=== PATIENT | female | born 1950 | race Caucasian/White ===

== ENCOUNTER 2018-03-06 06:33 | Inpatient (IN) ==
--- NOTE | 2018-02-22 19:08 | ANES ---
Anesthesia Pre Procedure Eval HOME MEDICATIONS diclofenac sodium 75 mg tablet,delayed release 75 mg PO BID #60 tab 12/12/17 [Last Taken Unknown] acetaminophen 325 mg tablet 325 mg PO Q4H PRN 01/25/18 [Last Taken Unknown] Allergies/Adverse Reactions: Allergies Allergy/AdvReac Type Severity Reaction Status Date / Time No Known Allergies Allergy Verified 02/22/18 09:15 - Planned Procedure Planned Procedure: Left Arthroplasty Total Hip Medication List Reviewed:: Yes Allergies Verified: Yes Medical History (Last Reviewed 02/22/18 @ 19:07 by Jose Guadalupe Cornejo CRNA) Left hip pain Onset Date: Unknown Tobacco abuse Onset Date: Unknown Arthritis Onset Date: ~03/11/16 Gallbladder polyp Onset Date: ~03/10/15 Joint pain Onset Date: ~08/09/17 Adhesive capsulitis of shoulder Onset Date: Unknown Adrenal adenoma Onset Date: ~03/26/16 right Back pain Onset Date: ~03/11/16 Weight loss Onset Date: ~03/10/15 Surgical History (Last Reviewed 02/22/18 @ 19:07 by Jose Guadalupe Cornejo CRNA) History of colonoscopy Onset Date: Unknown History of shoulder surgery Onset Date: ~01/01/99 Dr. Arana left frozen shoulder /arthroscopy Family History (Last Reviewed 02/22/18 @ 19:07 by Jose Guadalupe Cornejo CRNA) Brother Cancer of groin Father , 96 Arthritis History of hip replacement Cancer lung Mother , 92 Hypertension Parkinsons Sister , 68 Anorexia - Family Anesthesia History Family History:: no untoward family reactions to anesthesia - Airway/Neck/Teeth Within Normal Limits:: Yes Teeth Condition: intact Denture Type: None Neck Exam: full range of motion Mallampatti Score: 2 Thyromental (T-M) distance: > 6 cm Mandibulo Hyoid distance: > 3 cm - Respiratory Smoking Status: Current every day smoker Discussed smoking cessation including day of surgery: Yes Sleep Apnea currently treated: No - Cardiovascular Tolerate Activity: Fair - Anesthesia Assessment and Plan ASA Class: PS, II Anesthesia Type Plan: Spinal Planned difficult intubation/equipment available: No
[~2018-03-06 06:33] MED LIST: MORPHINE SULFATE 15 MG TABLET.SA PO PRN; ROPIVACAINE HCL/PF 100 MG, EPINEPHrine 0.2 MG, KETOROLAC TROMETHAMINE 30 MG in NORMAL S... IJ PRN; TRANEXAMIC ACID 1,000 MG in NORMAL SALINE 100 ML IV PRN; ceFAZolin SODIUM 1 GM VIAL IV PRN
[2018-03-06] MEDS: RINGER'S SOLUTION,LACTATED 1,000 ML IV PRN ×3 (07:08→09:40)
[2018-03-06] MEDS ORDERED: ACETAMINOPHEN 500 MG TABLET PO PRN (09:33)
[2018-03-06] MEDS ORDERED: ONDANSETRON HCL/PF 2 MG/ML VIAL IV PRN (09:33)
[2018-03-06] MEDS ORDERED: diphenhydrAMINE HCL 50 MG/ML VIAL IV PRN (09:33)
[2018-03-06] MEDS ORDERED: DEXTROSE 5%-LACTATED RINGERS 1,000 ML IV PRN (09:33)
[2018-03-06] MEDS ORDERED: MORPHINE SULFATE 4 MG/ML SYRG IV PRN (09:33)
[2018-03-06] MEDS ORDERED: ZOLPIDEM TARTRATE 5 MG TABLET PO PRN (09:33)
[2018-03-06] MEDS ORDERED: MAG HYDROX/ALUMINUM HYD/SIMETH 30 ML UDC PO PRN (09:33)
[2018-03-06] MEDS ORDERED: MAGNESIUM HYDROXIDE 30 ML UDC PO PRN (09:33)
--- NOTE | 2018-03-06 09:37 | OR ---
Operative Report - Dictated Report Narrative: Date: 03/06/2018 Preoperative diagnosis: Left hip degenerative joint disease. Postoperative diagnosis: Left hip degenerative joint disease. Procedure: Left Total hip arthroplasty. Surgeon: Mohit Cotton M.D. Senior Engineering Associate: Sumit Sharp PA-C (provided an essential set of skilled, educated and assisted with transfer, positioning, prepping, draping, manipulation, traction, irrigation, suturing, and placement of dressings all of which cannot be performed by the available surgical crew) Anesthesia: Spinal and local periarticular joint injection. Complications: None Specimens: Bone for disposal. Estimated blood loss: 150 milliliters. Retained implants: Depuy [place] size 5 femoral stem standard offset. Size 50 millimeter outside diameter 3-hole [place] Gription acetabular cup. 50 millimeter outside by 32 millimeter inside diameter highly cross-linked acetabular liner. 52 millimeter diameter +9 millimeter ceramic femoral head. Cancellous 6.5mm screw 25 millimeter length Indications: Mrs. Sales is a 67-year-old female who has had long-standing left hip pain and arthrosis. This patient was followed in my clinic for period of time with significant complaints of left hip pain consistent with arthritic changes. She failed conservative measures including but not limited to activity modification, passage of time, medications, and other conservative measures. Patient wished to proceed with surgical treatment. The risks, benefits, and alternatives were discussed in clinic. The risks of , blood clots, bleeding, infection, nerve/tendon blood vessel/ injury, malposition of components, dislocation and/or instability of joint, intraoperative fracture, postoperative limited range of motion, persistent pain, failure of components, and need for additional procedures. Patient wished to proceed. Consent was obtained after answering all questions. Procedure: After marking the correct extremity on the floor, the patient was taken to the operating room. A timeout was performed. IV antibiotics consisting of Ancef were administered prior to the procedure. A spinal anesthetic was induced by anesthesia. A Savage catheter was inserted. The patient was then transitioned to a lateral position on a well-padded pegboard. An axillary roll was placed. The head was in neutral position. The non- operative down leg was well-padded with SCD and CHADWICK hose in place. The arms were supported and padded to protect from any undue pressure on the bony prominences and nerves. A well-padded anterior and posterior pelvic and chest posts were secured in order to maintain a stable position of the pelvis. This was placed so that the pelvis was perpendicular to the floor. The body was in line with the pelvis. Once it was felt that we had protected all the bony prominences and the patient was well secured with a safety belt as well, the leg was pre-scrubbed with alcohol, prepped and draped in a standard sterile fashion. A standard anterior lateral hip incision was marked out over the greater trochanter. Ioban drapes were then placed. The skin incision was then made. Sharp dissection with a scalpel utilizing cautery for hemostasis was carried out down to the gluteus and iliotibial band fascia. This was split in line with the skin incision. The greater trochanter bursa was excised. The anterior and posterior margins of the abductor tendon were identified. The anterior 1/2-1/3 of the tendon was tagged and reflected off the greater trochanter leaving a sleeve of tendon for repair at the completion of the case. This exposed the underlying hip joint capsule. A limb length stitch was placed in the skin and referencedd off a jamia on the greater trochanter for evaluation of intraoperative limb lengths. An inverted T-type capsulotomy was made extending this up to the brim of the acetabulum. Using Homans to assist with elevation of the soft tissues off the anterior, superior, and inferior aspects of the femoral neck, the hip was then placed in a figure 4 position and the femoral head was dislocated. With the leg in an externally rotated and adducted position, the cutting flag was utilized in order to jamia for a standard femoral neck cut approximately a fingerbreadth above the level of the lesser trochanter. This was done with reference to pre-operative films and overall alignment. This was done while protecting the surrounding soft tissues with Homans. The femoral head was then removed and sized for guidance on preparation of the acetabulum. It was noted that there was loss of articular cartilage on both the femoral head and weightbearing portions of the acetabulum. We then returned the leg to the table and turned our attention to the acetabulum. While protecting the surrounding soft tissues, the labrum and remaining tissue in the fovea were excised using a scalpel and cautery. A series of reamers up to size 50 millimeter were utilized to prepare the acetabulum. The final reamer had good purchase and exposed the bleeding subchondral bone. The acetabulum was then thoroughly irrigated ensuring that all bony and cartilaginous materials were removed, and the final acetabular shell was impacted into place. This was placed in approximately 45 degrees of abduction and 20 degrees of anteversion utilizing the outrigger and body axis for alignment. This had a good press fit. 1 6.5mm cancellous screw was placed in the superior posterior quadrant of the acetabulum. The shell was then thoroughly irrigated and the final polyethylene was impacted into place ensuring that it seated completely. This was then protected with a sponge while we returned our attention to the femur. With the leg in a figure 4 position, utilizing Homans for soft tissue protection, a box cutting osteotome, followed by Charnley awl, followed by serial reamers and broaches were utilized in order to prepare the femur. It was found that a size 5 broach gave good axial and rotational stability. The calcar reamer was utilized in order to clean up the cut edges. The proximal femur was visualized to ensure that there were no signs of fracture. A series of heads and necks were trialed. It was found that a standard offset neck and a + 9 femoral head gave good overall stability. There was minimal longitudinal instability. With the leg in the position of sleep, the femoral head was well covered. Hip range of motion was able to reach full extension and external rotation to greater than 75 degrees prior to impingement along the posterior acetabulum. The hip was able to be flexed to greater than 90 degrees with internal rotation greater than 60 degrees prior to anterior impingement. The limb lengths were near equal based on comparison to the contralateral side and the prior placed limb length stitch. At this point it was felt these were the appropriately sized femoral components as well as neck and femoral head. The trial implants were removed. The femur was thoroughly irrigated. The final implants were impacted into place, and the hip was reduced. After ensuring that there was no damage to the proximal femur, the standard periarticular joint injection of ropivacaine, Toradol, and epinephrine were injected into the joint capsule and surrounding soft tissues. Anesthesia then administered intravenous tranexamic acid. The capsule was repaired with a single interrupted #1 Vicryl. The abductor tendon was repaired to the greater trochanter utilizing #5 Ethibond through drill holes. This was oversewn with #1 Vicryl. The fascia was closed with interrupted #1 Vicryl. The wounds were thoroughly irrigated as we closed in layers. The deep and subcutaneous fat layers were closed with 0 and 3-0 Vicryl respectively. The subcutaneous tissue was closed with a running 3-0 Vicryl and the skin lane. All sponge, needle, blade, and instrument counts were correct prior to closing the wounds. Sterile dressings consisting of xeroform, 4 x 4's, and tape were applied. The patient was awoken and transferred to her hospital bed and then to the postanesthesia care unit in stable condition. Postoperative condition: The plan is to admit to the medical/surgical inpatient floor postoperatively. There will be a projected 1 to 3 day hospital stay. Postoperatively 24 hours of IV antibiotics, pain control, physical therapy, occupational therapy, and medical comanagement will be utilized. Patient will be weightbearing as tolerated with anterior hip precautions. Postoperative films will be obtained in the recovery room.
--- NOTE | 2018-03-06 09:50 | ANES ---
Post Anesthesia Discharge - Transfer of Care Transfer of Care handoff given to nurse: Yes - Discharge from PACU Discharge from PACU when meets criteria: Yes
[2018-03-06] MEDS: KETOROLAC TROMETHAMINE 15 MG/ML VIAL IV SCH ×3 (10:29→22:03)
[2018-03-06] MEDS: ceFAZolin SODIUM 1 GM in DEXTROSE 5 % IN WATER 50 ML IV SCH ×4 (10:32→16:32)
--- NOTE | 2018-03-06 11:40 | ANES ---
Post Anesthesia Assessment - Vital Signs Vitals: Last Vital Signs Temp 36.6 C 03/06/18 10:20 Pulse 60 03/06/18 11:05 Resp 14 03/06/18 11:05 BP 118/61 03/06/18 11:05 Pulse Ox 100 03/06/18 11:05 Airway Patency: Normal - Mental Status Level Of Consciousness: Awake - Pain Level Pain Score: 0 - N/V Assessment Nausea/Vomiting Presence: None Dehydration:: No
[2018-03-06] MEDS: oxyCODONE HCL/ACETAMINOPHEN 1 TAB TABLET PO PRN ×2 (12:48→16:29)
[2018-03-06] MEDS: SENNOSIDES/DOCUSATE SODIUM 1 TAB TABLET PO SCH (22:03)
[2018-03-06] MEDS: MORPHINE SULFATE 15 MG TABLET.SA PO SCH (22:03)
[2018-03-07] MEDS: ceFAZolin SODIUM 1 GM in DEXTROSE 5 % IN WATER 50 ML IV SCH ×2 (01:04)
[2018-03-07] MEDS: KETOROLAC TROMETHAMINE 15 MG/ML VIAL IV SCH ×4 (04:44→22:10)
[2018-03-07 05:34] LABS: Hemoglobin 11.1 gm/dL (12.5-16.0); Mean Cell Volume 96.5 fl (78-100); Mean Corpuscular Hemoglobin 32.5 pg (27-31); Mean Corpuscular Hgb Conc 33.6 g/dl (32-36); Mean Platelet Volume 9.3 fl (8-12.5); Platelet Count 233 K/mm3 (150-450); Red Blood Count 3.42 M/mm3 (4.2-5.4); Red Cell Distribution Width 12.9 % (11.5-14.0); White Blood Count 10.2 K/mm3 (4.0-10.5)
[2018-03-07 05:43] LABS: Anion Gap 12.3 mmol/L (6.8-13.8); BUN/Creatinine Ratio 12.3 (9.0-21.6); Calcium * 8.4 mg/dL (7.9-10.9); Carbon Dioxide 24.9 mmol/L (24-32.6); Estimated Creat Clear 63.4; Potassium 4.2 mmol/L (3.4-4.6)
[2018-03-07] MEDS: oxyCODONE HCL/ACETAMINOPHEN 1 TAB TABLET PO PRN ×3 (07:05→20:06)
[2018-03-07] MEDS: MORPHINE SULFATE 15 MG TABLET.SA PO SCH ×2 (09:02→21:50)
[2018-03-07] MEDS: ENOXAPARIN SODIUM 40 MG/0.4 ML SYRG SC SCH (09:04)
[2018-03-07] MEDS ORDERED: MORPHINE SULFATE 2 MG/ML DISP.SYRIN IV PRN (10:00)
--- NOTE | 2018-03-07 16:38 | PN ---
Subjective - Date and Time Seen Date: 03/07/18 Time: 07:45 Subjective Narrative: Subjective: Reports mild left hip pain. It was worse last night but is improved this morning. Was able to walk in the [place] with therapy. Pain is better- controlled. Voiding without any complications. Tolerating by mouth intake. Denies any nausea or vomiting. Denies calf pain. Physical exam: Alert and oriented to person, place and time Left lower extremity: Palpable dorsalis pedis pulse. Sensation grossly intact to light touch. Dressings clean and dry. Able to flex and extend ankle and toes. No excessive drainage. Calf and thigh are soft and nontender. Assessment: Postop day 1 status post left total hip arthroplasty. Plan: Due to the need for pain control, post-operative limited mobility, protection of the surgical site and joint, monitoring of the wound, and the management of chronic medical conditions, she requires continued inpatient care. Continue with physical and occupational therapy weightbearing as tolerated. Continue with anticoagulation. 24 hours postoperative prophylactic antibiotics. Pain control with goal to rely on oral medications. Continue bowel regimen. Will need 6 weeks with walker or assitive device to protect joint while ambulating during the recovery process. Discharge planning. She has not met her physical therapy goals and thus will need to stay an additional day prior to going home. Objective - Vitals Vitals: Last Vital Signs Temp 37 C 03/07/18 14:00 Pulse 76 03/07/18 14:00 Resp 18 03/07/18 14:00 BP 116/62 03/07/18 14:00 Pulse Ox 93 03/07/18 14:00 - Abnormal Lab Findings Abnormal Lab Findings: Abnormal Lab Results 03/07/18 03/07/18 Range/Units 05:24 05:24 RBC 3.42 L (4.2-5.4) M/mm3 Hgb 11.1 L (12.5-16.0) gm/dL Hct 33.0 L (37.0-47.0) % MCH 32.5 H (27-31) pg Random Glucose 112 H (70-110) mg/dL Cauti Physician Documentation - Urinary Catheter Management Urethral (Savage) Date of Insertion: 03/06/18 Time of Insertion: 08:10 Date of Removal: 03/07/18 Time of Removal: 04:45 Assessment/Plan - Problems/Diagnosis (1) Status post total replacement of left hip Problem: Acute (2) Acute blood loss anemia Problem: Acute
[2018-03-07] MEDS: SENNOSIDES/DOCUSATE SODIUM 1 TAB TABLET PO SCH (21:51)
[2018-03-08] MEDS: KETOROLAC TROMETHAMINE 15 MG/ML VIAL IV SCH (05:14)
[2018-03-08] MEDS: ENOXAPARIN SODIUM 40 MG/0.4 ML SYRG SC SCH (08:20)
[2018-03-08] MEDS: MORPHINE SULFATE 15 MG TABLET.SA PO SCH (08:21)
[2018-03-08] MEDS: oxyCODONE HCL/ACETAMINOPHEN 1 TAB TABLET PO PRN ×2 (08:27→13:27)
--- NOTE | 2018-03-08 13:40 | DS ---
(1) Status post total replacement of left hip Problem: Acute (2) Acute blood loss anemia Problem: Acute Description of Stay: Mrs. Sales was admitted to the floor after undergoing left total hip arthroplasty. Tolerated this well. Was admitted to the floor postoperatively for 24 hours of IV antibiotics, pain control, medical comanagement, and occupational and physical therapy. OT and PT were consulted to assist with activities of daily living and ambulation. Was made weightbearing as tolerated with range of motion as tolerated with anterior hip precautions. Pain was initially controlled with IV regimen. This was transitioned to oral once tolerating a by mouth intake. Was resumed on home diet and medications. Had a Savage catheter inserted and the operating room which was discontinued on postoperative day 1. Lovenox SCD and CHADWICK hose were utilized for DVT prophylaxis. Vital signs remained stable to the hospital course. Serial labs were obtained which showed a final hemoglobin of 11.1 grams. BMP was reviewed and was stable. Physical examination throughout the hospital course showed an extremity that had sensation that was intact to light touch, palpable pulses, a benign wound, motor intact to the toes, ankle, and knee. Once an oral pain re gimen was tolerated and physical therapy goals were met, it was felt that they were stable for discharge to home. Instructions: Continue with weightbearing as tolerated and range of motion as tolerated with anterior hip precautions. Keep incision clean and dry. If you note any drainage or for comfort you can cover with dry gauze and tape. Change every 2-3 days as needed. Continue with physical therapy. Resume home diet. Report any fever over 101.5 Fahrenheit, uncontrolled pain, increased drainage, foul odor of drainage, new or increased calf pain or shortness of breath, or any other sig nificant complaints. A 325mg dialy aspirin will be started after finishing anticoagulation if not allergic. Continue with CHADWICK hose on the operative extremity until instructed otherwise. No driving until instructed otherwise. Follow up in approximately 10-14 days. Procedures Performed: see notes below List Procedures: Left total hip arthroplasty Results and Findings: Lab Pending Results 03/07/18 05:24: WBC 10.2, RBC 3.42 L, Hgb 11.1 L, Hct 33.0 L, MCV 96.5, MCH 32.5 H, MCHC 33.6, RDW 12.9, Plt Count 233, MPV 9.3 03/07/18 05:24: Sodium 139, Plasma Sodium 139, Potassium 4.2, Chloride 106, Carbon Dioxide 24.9, Anion Gap 12.3, BUN 10, Creatinine 0.81, Est GFR (Non-Af Amer) 75, BUN/Creatinine Ratio 12.3, Random Glucose 112 H, Calcium 8.4 Discharge Location: Home Disposition: Home self-care Condition: Good Discharge Activity: Activity as tolerated, Weight bearing, Other - with wheeled walker following anterior hip precautions Discharge Diet: General/regular food Referrals: Nayeli Pimentel MD [Primary Care Provider] - Additional Patient Instructions (free text): Outpatient Physical Therapy at [facility] rehab on 03/09/18 at 2:00pm.. Follow up Orthopedic appointment with Dr Cotton's office on TuesdayMar.21 at 8:30am. Prescriptions (Any new or edited meds): Enoxaparin Sodium [Lovenox] 40 mg SC Q24H #7 disp.syrin Morphine Sulfate [Ms Contin] 15 mg PO Q12H #20 tablet.sa oxyCODONE HCL/ACETAMINOPHEN [Percocet 5 MG/325 MG] 2 tab PO Q4H PRN #60 tab PRN Reason: Moderate Pain (Pain Scale 4-6) Sennosides/Docusate Sodium [Senokot-S] 2 tab PO HS #30 tablet Complete Home Medications List: Complete Home Medication List: Enoxaparin Sodium [Lovenox] 40 mg SC Q24H #7 disp.syrin 03/08/18 Morphine Sulfate [Ms Contin] 15 mg PO Q12H #20 tablet.sa 03/08/18 Sennosides/Docusate Sodium [Senokot-S] 2 tab PO HS #30 tablet 03/08/18 oxyCODONE HCL/ACETAMINOPHEN [Percocet 5 MG/325 MG] 2 tab PO Q4H PRN #60 tab 03/08/18
[2018-03-08 16:15] VITALS: BP 110/56
== END 2018-03-08 15:30 | disposition home or self-care (01) | DRG 470 ==
LOC: MS 06:33
PROVIDERS: ADMIT Orthopaedic Surgery; ATTEND Orthopaedic Surgery
DX: M19.90 Unspecified osteoarthritis, unspecified site; D62 Acute posthemorrhagic anemia; Z82.61 Family history of arthritis; M16.12 Unilateral primary osteoarthritis, left hip; F17.210 Nicotine dependence, cigarettes, uncomplicated
CPT/HCPCS: 36415; 73502; 80048; 85027; 97110; 97116; 97162; 97166; 97530; 97535; J2405